=== PATIENT | male | born 1990 | race Caucasian/White ===

== ENCOUNTER 2019-07-02 16:59 | Emergency (ER) | payer OTHER ==
[~2019-07-02] VITALS: Ht 188 cm; Wt 108.0 kg
[2019-07-02 17:33] VITALS: Ht 188 cm; Wt 108.0 kg
[2019-07-02 20:56] VITALS: BP 133/99
== END 2019-07-02 20:56 | disposition home or self-care (01) ==
LOC: ED 16:59
DX: S01.511A Laceration without foreign body of lip, initial encounter (principal); S09.8XXA Other specified injuries of head, initial encounter; W22.8XXA Striking against or struck by other objects, initial encounter; Y93.89 Activity, other specified; Y92.89 Other specified places as the place of occurrence of the external cause; Y99.8 Other external cause status
CPT/HCPCS: 90715; J2001